=== PATIENT | male | born 1960 | race Caucasian/White ===

== ENCOUNTER 2021-02-26 18:38 | Emergency (ER) | payer BC ==
[2021-02-26] MEDS ORDERED: Diphtheria,Pertussis(Acell),Tetanus Vaccine 0.5 ML Syringe IM ONE (19:07)
[2021-02-26] MEDS ORDERED: Bacitracin Oint 1 GM U/D Packet TOP ONE (19:08)
--- NOTE | 2021-02-26 19:31 | EDM.PDOC ---
ED HPI GENERAL MEDICAL PROBLEM - General Chief Complaint: General Stated Complaint: FISH HOOK RIGHT HAND Time Seen by Provider: 02/26/21 19:05 Source of Information: Reports: RN History Limitations: Reports: No Limitations - History of Present Illness Onset: Today, Sudden Onset Time: 17:30 Location: Reports: Upper Extremity, Right (Thumb, palmar surface) Quality: Reports: Sharp Severity: Mild Improves with: Reports: None Worsens with: Reports: Movement Context: Reports: Trauma Associated Symptoms: Reports: No Other Symptoms Right Finger-Thumb Pain Score (Numeric/FACES): 1 - Related Data Allergies Allergy/AdvReac Type Severity Reaction Status Date / Time No Known Allergies Allergy Verified 02/26/21 18:59 Home Meds: Home Meds NK [No Known Home Meds] 02/26/21 [History] Past Medical History HEENT History: Reports: Otitis Media - Infectious Disease History Infectious Disease History: Reports: Chicken Pox Social & Family History - Tobacco Use Tobacco Use Status *Q: Current Every Day Tobacco User Years of Tobacco use: 30 Packs/Tins Daily: 1 - Caffeine Use Caffeine Use: Reports: Coffee, Soda - Recreational Drug Use Recreational Drug Use: No ED ROS GENERAL - Review of Systems Review Of Systems: See Below Constitutional: Reports: No Symptoms Skin: Reports: Wound (Inglis right thumb palmar surface ) Neurological: Reports: No Symptoms Psychiatric: Reports: No Symptoms ED EXAM, GENERAL - Physical Exam Exam: See Below Exam Limited By: No Limitations General Appearance: Alert, WD/WN, No Apparent Distress Extremities: Normal Range of Motion Neurological: Alert, Oriented, CN II-XII Intact, Normal Cognition, Normal Gait, Normal Reflexes, No Motor/Sensory Deficits Skin Exam: Warm, Dry, Wound/Incision (Inglis right thumb palmar surface) ED GENERAL MEDICAL PROCEDURES - Laceration/Wound Repair Right Digit - 1st (Thumb) Lac/wound length in cm: 0 (Puncture wound) Appearance: Superficial Distal NVT: Neuro & Vascular Intact, No Tendon Injury Anesthetic Type: Local Local Anesthesia - Lidocaine (Xylocaine): 1% Plain Local Anesthetic Volume: 1cc Skin Prep: Chlorhexidine (Hibiciens) Exploration/Debridement/Repair: Foreign Material Removed (Intact fishhook single lorraine removed from left thumb palmar surface.) Complications: No Progress/Comments: Consented to removal of fishhook from left thumb palmar surface. Patient denies allergies. 1 cc of lidocaine without epi was administered along the entry point of the fishhook. A push through method of the hook was applied in the hook was removed without incident. Patient tolerated procedure well. Tetanus was addressed and updated for the patient. Patient was provided tetanus education and written information on the vaccination. Course - Vital Signs Last Recorded V/S: Last Vital Signs Temp 36.9 C 02/26/21 19:04 Pulse 66 02/26/21 19:04 Resp 16 02/26/21 19:04 BP 126/87 02/26/21 19:04 Pulse Ox 100 02/26/21 19:04 - Orders/Labs/Meds Meds: Medications Discontinued Medications Generic Name Dose Route Start Last Admin Trade Name Jakob PRN Reason Stop Dose Admin Bacitracin 1 dose 02/26/21 19:08 02/26/21 19:14 Bacitracin Oint 1 Gm U/D Packet TOP 02/26/21 19:09 1 dose ONETIME ONE Administration Diphtheria/Tetanus/Acell Pertussis 0.5 ml 02/26/21 19:07 02/26/21 19:14 Diphtheria,Pertussis(Acell),Tetanus Vaccine 0.5 Ml Syringe IM 02/26/21 19:08 0.5 ml .ONCE ONE Administration Lidocaine HCl 5 ml 02/26/21 19:07 02/26/21 19:14 Lidocaine 1% 5 Ml Sdv INJECT 02/26/21 19:08 5 ml ONETIME ONE Administration Departure - Departure Time of Disposition: 19:36 Disposition: Home, Self-Care 01 Condition: Good Clinical Impression: Inglis injury to finger - Discharge Information *PRESCRIPTION DRUG MONITORING PROGRAM REVIEWED*: No *COPY OF PRESCRIPTION DRUG MONITORING REPORT IN PATIENT JENNIFFER: No Instructions: Puncture Wound Referrals: PCP,None [Primary Care Provider] - Forms: ED Department Discharge Additional Instructions: Keep area clean and dry. Do not soak in ambriz water. Keep area covered if you continue to finish over the next several days until area closes/heals. Care Plan Goals: Monitor area for signs and symptoms of infection. Follow-up with primary care provider if you have any other questions or concerns. Note you received your tetanus vaccine you may have soreness at the injection sites or flulike symptoms over the next day or so please work your arm/range of motion to prevent continued muscular pain Sepsis Event Note (ED) - Evaluation Sepsis Screening Result: No Definite Risk - Focused Exam Vital Signs: Vital Signs Temp Pulse Resp BP Pulse Ox 02/26/21 19:04 36.9 C 66 16 126/87 100 - Assessment/Plan Assessment:: Inglis in right great thumb palmar surface Plan: Keep area clean and dry. Do not soak hand in ambriz water. Please keep covered if you continue to fish over the next several days. You received your tetanus vaccine. You may have pain at the injection site or flulike symptoms over the next 24 to 48 hours. Please exercise arm and utilize arm to reduce muscle pain and tension. Follow-up with primary care provider if you notice any signs or symptoms of infection or problems with the tetanus injection. He may return to the ER if needed as well.
== END 2021-02-26 19:36 | disposition home or self-care (01) ==
LOC: JP.ED 18:38
DX: S61.041A Puncture wound with foreign body of right thumb without damage to nail, initial encounter (principal); Z23 Encounter for immunization; Z72.0 Tobacco use; W45.8XXA Other foreign body or object entering through skin, initial encounter
CPT/HCPCS: 90471; 90715; 99283